=== PATIENT | female | born 1990 | race Caucasian/White ===

== ENCOUNTER → 2018-12-30 | Outpatient (REF) | payer BC | LOC: M LAB LCGH 12-29 12:06 | PROVIDERS: ATTEND Obstetrics & Gynecology | DX: L72.0 Epidermal cyst (principal) ==

== ENCOUNTER → 2018-12-30 | Outpatient (REF) | LOC: M LAB LCGH 15:37 | PROVIDERS: ATTEND Obstetrics & Gynecology | DX: Z00.00 Encounter for general adult medical examination without abnormal findings (principal) ==